=== PATIENT | female | born 1960 | race Caucasian/White ===

== ENCOUNTER 2023-01-15 08:38 | Day surgery (SDC) | payer BC ==
[2023-01-15 08:58] LABS: #Basophils 0.1 thou/uL (0.0-0.2); #Eosinphils 0.2 thou/uL (0.0-0.7); #Monocytes 0.4 thou/uL (0.11-0.59); #Neutrophils 2.9 thou/uL (1.40-6.50); %Basophils 0.8 % (0.0-1.0); %Eosinophils 2.7 % (0.0-10.0); %Lymphocytes 43.4 % (21.0-51.0); %Monocytes 6.8 % (0.0-10.0); %Neutrophils 46.1 % (42.0-75.0); Hematocrit 49.2 % (36.0-47.0); Mean Corpuscular HGB CONC 32.5 g/dL (32.0-36.0); Mean Corpuscular Volume 92.1 fl (78.0-98.0); Platelet Count 245 10x3/uL (130-400); Red Blood Cell (RBC) Count 5.34 mill/uL (4.20-5.40); White Blood Cell (WBC) Count 6.2 10x3/uL (4.8-10.8)
[2023-01-15 09:13] LABS: PTT 27.5 sec (22.9-36.1)
[2023-01-15 11:46] VITALS: BP 162/94; TEMP 98.3
== END 2023-01-15 15:00 | disposition home or self-care (01) ==
LOC: CT 08:38
PROVIDERS: ATTEND Internal Medicine Nephrology
DX: I12.9 Hypertensive chronic kidney disease with stage 1 through stage 4 chronic kidney disease, or unspecified chronic kidney disease (principal); N18.2 Chronic kidney disease, stage 2 (mild); R80.9 Proteinuria, unspecified; I10 Essential (primary) hypertension; E78.5 Hyperlipidemia, unspecified; R60.0 Localized edema; N28.1 Cyst of kidney, acquired; N28.89 Other specified disorders of kidney and ureter; D63.1 Anemia in chronic kidney disease; Z87.442 Personal history of urinary calculi; Z79.899 Other long term (current) drug therapy
CPT/HCPCS: 36415; 50200; 77012; 85025; 85610; 85730; 88329